=== PATIENT | male | born 1970 | race Caucasian/White ===

== ENCOUNTER 2017-02-26 14:34 | Emergency (ER) | payer SELFPAY ==
[~2017-02-26] VITALS: Ht 180.3 cm; Wt 78.0 kg
[2017-02-26 14:35] VITALS: BP 132/62; PULSE 71; RESP 14; TEMP 98.6; O2SAT 98
--- NOTE | 2017-02-26 15:27 | PD ---
HPI Chief Complaint: Laceration/Skin Injury Time Seen by Provider: 15:07 Travel History International Travel<30 days: No Contact w/Intl Traveler<30days: No Traveled to known affect area: No History of Present Illness HPI 26-year-old male presents emergency Department with complaint of a laceration to the ventral aspect of his right hand from a wench that was unwinding and hit him in the hand. Denies paresthesias, loss of sensation or decreased range of motion or decreased strength to the affected hand. Has not taken any medication to alleviate his symptoms. Has applied pressure and a bandage to control bleeding. Is not up-to-date on tetanus vaccination. Rates pain 3/10. Describes it as a throbbing sensation. No known relieving factors. Aggravated by movement. Has no other medical complaints. No known allergies. No other modifying factors or associated signs and symptoms. PFSH Past Medical History Medical History: Denies Significant Hx Diminished Hearing: No Tetanus Vaccination: Unknown Influenza Vaccination: No Past Surgical History Surgical History: No Previous Surgery Social History Alcohol Use: No Tobacco Use: No Substance Use: No Allergies-Medications (Allergen,Severity, Reaction): Coded Allergies: No Known Allergies (Verified Allergy, Unknown, 02/26/17) Reported Meds & Prescriptions Reported Meds & Active Scripts Active Ibuprofen 800 Mg Tab 800 Mg PO Q6HR PRN Bactrim DS (Sulfamethoxazole-Trimethoprim) 800-160 Mg Tab 1 Tab PO BID 7 Days Review of Systems Except as stated in HPI: all other systems reviewed are Neg Physical Exam Narrative GENERAL: Well-nourished, well-developed male patient, in no acute distress SKIN: Warm and dry. Approximately 2 cm L-shaped laceration to the ventral aspect of the right hand in between the first and second digits; bleeding controlled; area with edema and without ecchymosis or erythema. HEAD: Atraumatic. Normocephalic. EYES: Pupils equal and round. No scleral icterus. No injection or drainage. ENT: Mucosa pink and moist. Airway patent. NECK: Trachea midline. CARDIOVASCULAR: Regular rate. RESPIRATORY: No accessory muscle use. GASTROINTESTINAL: Flat. MUSCULOSKELETAL: No obvious deformities. No clubbing. No cyanosis. No edema. NEUROLOGICAL: Awake and alert. Oriented 3. No obvious cranial nerve deficits. Motor grossly within normal limits. Normal speech. PSYCHIATRIC: Appropriate mood and affect; insight and judgment normal. Exam Hand 1 - Laceration (2cm ) Data Data Last Documented VS Vital Signs Date Time Temp Pulse Resp B/P (MAP) Pulse Ox O2 Delivery O2 Flow Rate FiO2 02/26/17 17:00 02/26/17 14:53 16 02/26/17 14:35 98.6 71 98 Orders Orders Hand, Complete ([id number]) (02/26/17 15:19) Tetanus/Diphtheria Tox Adult (Tetanus/Di (02/26/17 15:30) Lidocaine 1% Inj (50 Ml) (Xylocaine 1% I (02/26/17 15:30) Ed Discharge Order (02/26/17 16:48) MDM Medical Decision Making Medical Screen Exam Complete: Yes Emergency Medical Condition: Yes Medical Record Reviewed: Yes Differential Diagnosis Laceration, contusion, abrasion, hand fracture Narrative Course 36-year-old male with a laceration of the right hand. Tetanus updated in the ER. See my procedure note for laceration repair. Recommend ibuprofen prescribed for home. Instructed patient to return to the emergency department or follow-up with primary care provider in 7-10 days for suture removal. Instructed patient to follow up with primary care provider. Patient verbalizes understanding and agreement with treatment plan. Patient is medically cleared and stable for discharge. Discussed reasons to return to the emergency department. Patient agrees with treatment plan. The patients vital signs are stable and the patient is stable for outpatient follow-up and treatment. Patient discharged home, stable and in no acute distress. Diagnosis Primary Impression: Laceration of right hand Qualified Codes: S61.411A - Laceration without foreign body of right hand, initial encounter Referrals: Hand Surgeon Primary Care Physician Patient Instructions: Care For Your Stitches (ED), General Instructions, Laceration (ED) Departure Forms: Tests/Procedures, Work Release Enter return to work date: Feb 28, 2017 Additional Instructions: Keep area clean and dry Limit right hand activity to decrease risk of sutures coming undone Ibuprofen or Tylenol as directed and as needed for pain and inflammation Ice pack to area as needed to decrease pain Return to the emergency department or follow-up with primary care provider in 7- 10 days for suture removal Follow up with primary care provider within 2-4 days Return to the emergency department immediately with worsening of symptoms, particularly if reddened streaks up or down the affected extremity from the suture site, fever, numbness/tingling in the affected extremity, loss of sensation in the affected extremity, severe swelling of the affected Med/Other Pt SpecificInfo: Prescription(s) given Scripts Ibuprofen (Ibuprofen) 800 Mg Tab 800 MG PO Q6HR Y for PAIN, #30 TAB 0 Refills Prov: Deanna Rueda 02/26/17 Sulfamethoxazole-Trimethoprim (Bactrim DS) 800-160 Mg Tab 1 TAB PO BID for Infection for 7 Days, #14 TAB 0 Refills Prov: Deanna Rueda 02/26/17 Disposition: 01 DISCHARGE HOME Condition: Stable Deanna Rueda Feb 26, 2017 15:27
[2017-02-26] MEDS ORDERED: IBUP1TAB7 PO (15:29)
[2017-02-26] MEDS ORDERED: BACT800T5 PO (15:29)
[2017-02-26] MEDS ORDERED: LIDOCAINE HCL 1% 50 ML VIAL INFIL ONE (15:30)
[2017-02-26] MEDS ORDERED: TETANUS/DIPHTHERIA TOXOID ADULT 0.5 ML VIAL IM ONE (15:30)
--- NOTE | 2017-02-26 16:26 | RADRPT ---
EXAM DATE/TIME: 02/26/2017 15:41 [facility] COMPARISON: No previous studies available for comparison. INDICATIONS : Right hand pain, lacerated by wench tool. MEDICAL HISTORY : None. SURGICAL HISTORY : None. ENCOUNTER: Initial ACUITY: 1 day PAIN SCORE: 3/10 LOCATION: Right Between first and second digit. FINDINGS: Three view examination of the right hand demonstrates no radiopaque foreign bodies, dislocation, or f racture. The carpal bones appear intact. The interphalangeal and metacarpophalangeal joints are in tact. Bony mineralization is normal. CONCLUSION: 1. No radiopaque foreign body, acute fracture or dislocation. Satinder Garza MD on February 26, 2017 at 16:23 Board Certified Radiologist. This report was verified electronically.
== END 2017-02-26 17:01 | disposition home or self-care (01) ==
LOC: NEPD 14:34
DX: S61.411A Laceration without foreign body of right hand, initial encounter (principal); W22.8XXA Striking against or struck by other objects, initial encounter; Z23 Encounter for immunization
CPT/HCPCS: 12001; 73130; 90471; 90714

== ENCOUNTER 2017-03-08 17:34 | Emergency (ER) | payer SELFPAY ==
[~2017-03-08 17:34] MED LIST: BACT800T5 PO; IBUP1TAB7 PO
[2017-03-08 17:35] VITALS: BP 137/80; PULSE 76; RESP 15; TEMP 98.2; O2SAT 99
--- NOTE | 2017-03-08 17:43 | PD ---
HPI Chief Complaint: Wound/Suture/Staple Re-Check Time Seen by Provider: 17:41 Travel History International Travel<30 days: No Contact w/Intl Traveler<30days: No Traveled to known affect area: No History of Present Illness HPI Patient is a 46 year old male presenting to the ED for removal of stitches to his left hand. He states they were placed over a week ago. He denies any pain, redness, drainage, foul odor. He has no other complaints at this time. [facility] Past Medical History Medical History: Denies Significant Hx Diminished Hearing: No Social History Alcohol Use: No Tobacco Use: No Substance Use: No Allergies-Medications (Allergen,Severity, Reaction): Coded Allergies: No Known Allergies (Verified Allergy, Unknown, 02/26/17) Reported Meds & Prescriptions Reported Meds & Active Scripts Active Ibuprofen 800 Mg Tab 800 Mg PO Q6HR PRN Bactrim DS (Sulfamethoxazole-Trimethoprim) 800-160 Mg Tab 1 Tab PO BID 7 Days Review of Systems Except as stated in HPI: all other systems reviewed are Neg Skin: Positive Other (stitches) Physical Exam Narrative GENERAL: Well developed, well nourished alert male. In no acute distress. SKIN: Warm and dry. repaired laceration to left hand on the dorsal aspect in between the first and second fingers. No erythema, drainage or odor noted. HEAD: Normocephalic. EYES: No scleral icterus. No injection or drainage. CARDIOVASCULAR: Regular rate RESPIRATORY: No accessory muscle use. MUSCULOSKELETAL: No cyanosis, or edema. Data Data Last Documented VS Vital Signs Date Time Temp Pulse Resp B/P (MAP) Pulse Ox O2 Delivery O2 Flow Rate FiO2 03/08/17 18:03 03/08/17 17:35 98.2 76 15 99 Orders Orders Ed Discharge Order (03/08/17 17:43) MDM Medical Decision Making Medical Screen Exam Complete: Yes Emergency Medical Condition: Yes Interpretation(s) Vital Signs Date Time Temp Pulse Resp B/P (MAP) Pulse Ox O2 Delivery O2 Flow Rate FiO2 03/08/17 18:03 03/08/17 17:35 98.2 76 15 137/80 (99) 99 Differential Diagnosis cellulitis vs normal healing vs suture removal vs other Narrative Course Pt presented for removal of sutures. VSS, no s/s of infection. Stitches were removed without difficulty. Pt encouraged to follow up with PCP or return to ED for any new or worsening symptoms. He verbalized understanding. Pt is stable for discharge. Diagnosis Primary Impression: Encounter for removal of sutures Referrals: Primary Care Physician Patient Instructions: Acute Wound Care (GEN), General Instructions Additional Instructions: FOLLOW UP WITH PRIMARY DOCTOR APPLY TOPICAL ANTIBIOTIC OINTMENT RETURN TO THE EMERGENCY DEPARTMENT FOR ANY NEW OR WORSENING SYMPTOMS Med/Other Pt SpecificInfo: No Change to Meds Disposition: 01 DISCHARGE HOME Condition: Stable Treasure Smiley Mar 08, 2017 17:43
== END 2017-03-08 18:07 | disposition home or self-care (01) ==
LOC: NED 17:34
DX: Z48.02 Encounter for removal of sutures (principal)
CPT/HCPCS: 99281

== ENCOUNTER 2018-01-04 20:47 | Inpatient (IN) ==
[2018-01-04] MEDS ORDERED: Acetaminophen 325 MG Tablet PO ONE (22:23)
[2018-01-04] MEDS ORDERED: Sod Chloride 0.9% Inj 1,000 ML IV.SIG SCH (22:30)
--- NOTE | 2018-01-04 22:50 | XR ---
EXAM DATE: 01/04/2018 10:23 PM EDT AGE/SEX: 47 years / Male INDICATIONS: Right upper arm pain for 2 days with no known injury CLINICAL DATA: This is the patient's initial encounter. Patient reports that signs and symptoms have been present for 2 days and indicates a pain score of 5/10. MEDICAL/SURGICAL HISTORY: None. None. COMPARISON: No prior exams available for comparison. FINDINGS: Bony structures are intact and in normal alignment. Osseous density is normal. Soft tissues are unre markable. No radiopaque foreign bodies seen. CONCLUSION: Negative right humerus series Electronically signed by: Britton Barrett MD 01/04/2018 10:49 PM EDT
[2018-01-04 23:22] LABS: Hematocrit 50.6 % (39.0-51.0); Hemoglobin 16.8 gm/dL (13.0-17.0); Mean Corpuscular HGB Conc 33.3 % (32.0-36.0); Mean Corpuscular Hemoglobin 30.5 pg (27.0-34.0); Mean Corpuscular Volume 91.8 fL (80.0-100.0); Mean Platelet Volume 8.5 fL (7.0-11.0); Platelet Count 184 th/mm3 (150-450); Red Blood Count 5.51 mil/mm3 (4.50-5.90); Red Cell Distribution Width 13.9 % (11.6-17.2); White Blood Count 20.7 th/mm3 (4.0-11.0)
--- NOTE | 2018-01-04 23:27 | ED ---
HPI General Chief complaint: Skin/Abscess/Foreign Body Stated complaint: Skin Time Seen by Provider: 01/04/18 22:03 Source: patient Mode of arrival: ambulatory Limitations: no limitations History of Present Illness HPI narrative: Patient is a previously healthy 47-year-old male who presents with complaint of wound to his right bicep region. He states that he recently had ant bites there and scratch them constantly. Yesterday he started to notice an area of erythema and pain. This has progressed. He reports a fever and chills. He denies any recent invasive procedures or IV drug use. No chest pain nor dyspnea. No abdominal pain. MD complaint: Reports lesion Onset (ago): unknown Location: Reports RUE Severity: moderate Quality: Reports aching and sharp Pain Consistency: constant Relieving factors: none Exacerbating factors: palpation Context: Reports witnessed insect bite Associated symptoms: Reports denies other symptoms Treatments prior to arrival: Reports none Related Data Home Medications Medication Instructions Recorded Confirmed No Known Home Medications 01/04/18 01/04/18 Allergies Allergy/AdvReac Type Severity Reaction Status Date / Time No Known Allergies Allergy Verified 01/04/18 21:22 Review of Systems ROS: all other systems reviewed are negative [facility] Medical History Medical History Patient denies medical problems (Acute) Surgical History Surgical History H/O hand surgery (Acute) Family History Family History Other Diabetes mellitus Social History Social History Substance History: No History of Abuse Second Hand Smoke Exposure: Yes Smoking Status: Current every day smoker Tobacco Type: Cigarettes How Often Do You Have a Drink Containing Alcohol: Never Recent Travel in [facility] within the Last 8 Weeks: No Recent Out of Country Travel within the Last 8 Weeks: No Immunization History Tetanus Immunization: <5 Years Exam Narrative Exam Narrative: GENERAL: Well-appearing male in no acute distress SKIN: Focused skin assessment warm/dry. Circular area of erythema and warmth to the right bicep region. No induration. HEAD: Atraumatic. Normocephalic. EYES: Pupils equal and round. No scleral icterus. No injection or drainage. ENT: No nasal bleeding or discharge. Mucous membranes pink and moist. NECK: Trachea midline. No JVD. CARDIOVASCULAR: Regular rate and rhythm. No murmur appreciated. Intact and equal peripheral pulses. RESPIRATORY: No accessory muscle use. No crackles. GASTROINTESTINAL: Abdomen soft, non-tender, nondistended. Hepatic and splenic margins not palpable. MUSCULOSKELETAL: No obvious deformities. No clubbing. No cyanosis. No edema. NEUROLOGICAL: Awake and alert. No obvious cranial nerve deficits. Motor grossly within normal limits. Normal speech. PSYCHIATRIC: Appropriate mood and affect; insight and judgment normal. Procedures Chest Tube Chest Tube 1: Chest Tube Location: Mid-Axillary Chest Chest Tube Procedure: Yes betadine prep and sterile drapes applied Tube Sutured to Skin: Yes Sterile Dressing Applied: Yes Anesthesia: 1% Lidocaine Volume anesthetic (mL): 3 Incision made with: #11 blade Sant[place] of [place]: Yes Tube Drainage: none Post Procedure CXR?: Yes Progress: Patient had pigtail catheter placement axillary line, sutured in place 3-0 silk suture. Patient tolerated the procedure well. Chest x-ray confirms, residual apical pneumothorax which is small. Patient Tolerated Procedure: Yes Post Procedure: sutured to skin and sterile dressing applied Course Initial Documented Vital Signs Temperature 101 F H 01/04/18 21:15 Pulse Rate 101 H 01/04/18 21:15 Respiratory Rate 24 01/04/18 21:15 Blood Pressure 116/72 01/04/18 21:15 Pulse Oximetry 98 01/04/18 21:15 Last Documented Vital Signs Temperature 97.2 F L 01/05/18 12:00 Pulse Rate 70 01/05/18 12:00 Respiratory Rate 16 01/05/18 12:00 Blood Pressure 111/66 01/05/18 12:00 Pulse Oximetry 87 L 01/05/18 12:00 Medical Decision Making [facility] Narrative Medical decision making narrative: Patient is a 47-year-old male who presents with complaint of pain, erythema, warmth to the right bicep region that he started to notice yesterday. He is febrile on arrival with slight tachycardia that is appropriately elevated for his temperature, but otherwise appears well. X-ray unremarkable. Labs reveal leukocytosis. He has been given pain medicine, Tylenol, fluids and antibiotics. BMP, UA, CXR pending. Plan for admission. Patient CARE assume by me Dr. Greenberg from Dr. Garcia at 2300, 47-year-old male initially presented for cellulitis and not feeling well the right upper extremity, chest x-ray was ordered for routine sepsis workup showed tension pneumothorax. On my initial examination of the patient he stated that his presentation was actually due to shortness of breath. I discussed with him risk benefits comp occasions alternatives of chest tube and highly recommended that one be placed. He is already been receiving antibiotics. The pigtail catheter was placed and showed significant reduction in the size of his pneumothorax, patient was discussed with Dr. Carcamo for admission. Medical Screen Exam Complete: Yes Emergency Medical Condition: Yes Differential Diagnosis Differential Diagnosis: Differential diagnosis includes but is not limited to cellulitis, sepsis, contact dermatitis. Medical Records Medical records reviewed: Yes I reviewed the patient's medical records. Lab Data Result diagrams: 01/04/18 22:58 01/04/18 22:58 Lab Results 01/04/18 01/04/18 01/04/18 Range/Units 22:58 22:58 23:42 WBC 20.7 H (4.0-11.0) th/mm3 RBC 5.51 (4.50-5.90) mil/mm3 Hgb 16.8 (13.0-17.0) gm/dL Hct 50.6 (39.0-51.0) % MCV 91.8 (80.0-100.0) fL MCH 30.5 (27.0-34.0) pg MCHC 33.3 (32.0-36.0) % RDW 13.9 (11.6-17.2) % Plt Count 184 (150-450) th/mm3 MPV 8.5 (7.0-11.0) fL Prelim Diff (Auto) Manual diff required WBC Differential Manual diff final Seg Neuts % (Manual) 87 H (16-70) % Band Neuts % (Manual) 5 (0-6) % Lymphocytes % (Manual) 3 L (9-44) % Monocytes % (Manual) 5 (0-8) % Abs Neuts (Manual) 19.0 H (1.8-7.7) th/mm3 Differential Comment . Platelet Estimate Normal (Normal) Platelet Morphology Normal (Normal) RBC Morphology Normal (Normal) Sodium 141 (136-145) meq/L Potassium 3.9 (3.5-5.1) meq/L Chloride 105 (98-107) meq/L Carbon Dioxide 30.3 (21.0-32.0) meq/L Anion Gap 6 (5-15) meq/L BUN 22 H (7-18) mg/dL Creatinine 1.51 H (0.60-1.30) mg/dL Estimated GFR 50 L (>89) mL/min Random Glucose 102 (74-106) mg/dL Lactic Acid 1.8 (0.4-2.0) mmol/L Calcium 9.2 (8.5-10.1) mg/dL Urine Color (Yellw/Straw) Urine Clarity (Clear) Urine pH (5.0-8.5) Ur Specific [place] (1.002-1.035) Urine Protein (Neg-Trace) mg/dL Urine Glucose (UA) (Negative) mg/dL Urine Ketones (Negative) mg/dL Urine Occult Blood (Negative) Urine Nitrate (Negative) Urine Bilirubin (Negative) Urine Urobilinogen (Less than 2) mg/dL Ur Leukocyte Esterase (Negative) Urine RBC (0-3) /hpf Urine WBC (0-5) /hpf Hyaline Casts (0-3) /lpf Urine Mucus (Occasional) /lpf Micro UA Comment Ur Microscopic Review Urine Culture Comments 01/04/18 Range/Units 23:52 WBC (4.0-11.0) th/mm3 RBC (4.50-5.90) mil/mm3 Hgb (13.0-17.0) gm/dL Hct (39.0-51.0) % MCV (80.0-100.0) fL MCH (27.0-34.0) pg MCHC (32.0-36.0) % RDW (11.6-17.2) % Plt Count (150-450) th/mm3 MPV (7.0-11.0) fL Prelim Diff (Auto) WBC Differential Seg Neuts % (Manual) (16-70) % Band Neuts % (Manual) (0-6) % Lymphocytes % (Manual) (9-44) % Monocytes % (Manual) (0-8) % Abs Neuts (Manual) (1.8-7.7) th/mm3 Differential Comment Platelet Estimate (Normal) Platelet Morphology (Normal) RBC Morphology (Normal) Sodium (136-145) meq/L Potassium (3.5-5.1) meq/L Chloride (98-107) meq/L Carbon Dioxide (21.0-32.0) meq/L Anion Gap (5-15) meq/L BUN (7-18) mg/dL Creatinine (0.60-1.30) mg/dL Estimated GFR (>89) mL/min Random Glucose (74-106) mg/dL Lactic Acid (0.4-2.0) mmol/L Calcium (8.5-10.1) mg/dL Urine Color Yellow (Yellw/Straw) Urine Clarity Clear (Clear) Urine pH 6.0 (5.0-8.5) Ur Specific [place] 1.025 (1.002-1.035) Urine Protein Negative (Neg-Trace) mg/dL Urine Glucose (UA) Negative (Negative) mg/dL Urine Ketones Negative (Negative) mg/dL Urine Occult Blood Negative (Negative) Urine Nitrate Negative (Negative) Urine Bilirubin Negative (Negative) Urine Urobilinogen Less than 2 (Less than 2) mg/dL Ur Leukocyte Esterase Negative (Negative) Urine RBC 1 (0-3) /hpf Urine WBC 1 (0-5) /hpf Hyaline Casts 3 (0-3) /lpf Urine Mucus Few H (Occasional) /lpf Micro UA Comment Culture not ind Ur Microscopic Review Not Reportable Urine Culture Comments Culture not ind Imaging Data Attestation: I personally reviewed and interpreted this imaging study as follows : My impression: Unremarkable. Radiologist's impression: Humerus X-Ray 01/04/18 22:23 CONCLUSION: Negative right humerus series Chest X-Ray 01/04/18 23:28 CONCLUSION: Large right pneumothorax with some findings suggesting a mild degree of tension. Immediate decompression and chest tube placement is suggested. These findings were telephoned to the emergency room at the time of this dictation. Chest CT 01/05/18 00:00 CONCLUSION: 1. Small bore right-sided chest tube with pigtail catheter located along the lateral aspect of the right upper lobe. 2. Small to moderate residual pneumothorax. 3. Right lung infiltrate. Upper Extremity Ultrasound 01/05/18 00:00 CONCLUSION: 1. Findings consistent with cellulitis and small subcutaneous 15 mm abscess communicating with the draining cutaneous fistula. Venous Doppler Study 01/05/18 00:00 CONCLUSION: 1. The study is negative for upper extremity deep venous thrombosis. Chest X-Ray 01/05/18 00:20 CONCLUSION: 1. Interval chest tube placement with significant decrease in size of the pneumothorax with only a small residual right apical pneumothorax remaining. 2. Mild degree of consolidation in the right upper lobe which could represent reexpansion edema. Suggest attention to this at follow-up imaging. Discharge Plan Discharge Disposition Patient Disposition: 30 Still Patient Discharge Details Diagnosis: Pneumothorax, Cellulitis, Sepsis Physicians Team ED Provider: Jonathan Greenberg Primary Care Provider: Primary Care Stephenie Tomas Attending Provider: Mike Cagle Other Providers: Terry Johnson Status ED Status: Left Department Discharge Information Discharge Date/Time: 01/05/18 03:54
[2018-01-04] MEDS ORDERED: Vancomycin Inj 1,200 MG in Sodium Chlor 0.9% Inj 250 ML IV.SIG STA (23:28)
[2018-01-04] MEDS ORDERED: Piperacil/Tazo 4.5 GM Premix 4.5 GM/100 ML BAG IV.SIG STA (23:28)
[2018-01-04 23:43] LABS: Calcium 9.2 mg/dL (8.5-10.1); Carbon Dioxide 30.3 meq/L (21.0-32.0); Potassium 3.9 meq/L (3.5-5.1)
[2018-01-05 00:07] LABS: Lymphocytes 3 % (9-44); Monocytes 5 % (0-8)
--- NOTE | 2018-01-05 00:07 | XR ---
EXAM DATE: 01/04/2018 11:28 PM EDT AGE/SEX: 47 years / Male INDICATIONS: Fever. CLINICAL DATA: This is the patient's initial encounter. Patient reports that signs and symptoms have been present for 1 day and indicates a pain score of 0/10. MEDICAL/SURGICAL HISTORY: None. None. COMPARISON: No prior exams available for comparison. FINDINGS: Portable upright AP view of the chest demonstrates a normal size cardiac silhouette. There is a very large right pneumothorax with severe collapse of the right lung. There may be slight leftward shift o f the mediastinum and slight flattening of the right hemidiaphragm suggesting some degree of tension. On the left, no effusion or airspace consolidation is identified. The bones and soft tissues demonst rate no acute finding. No rib fracture is visualized. CONCLUSION: Large right pneumothorax with some findings suggesting a mild degree of tension. Immediate decompress ion and chest tube placement is suggested. These findings were telephoned to the emergency room at th e time of this dictation. Electronically signed by: Britton German MD 01/05/2018 12:05 AM EDT
[2018-01-05 00:08] LABS: Platelet Estimate Normal (Normal); Platelet Morphology Normal (Normal); RBC Morphology Normal (Normal)
[2018-01-05 00:16] LABS: Bilirubin,Urine Negative (Negative); Clarity,Urine Clear (Clear); Color,Urine Yellow (Yellw/Straw); Glucose,Urine (UA) Negative (Negative); Hyaline Casts,Urine 3 /lpf (0-3); Leukocyte Esterase,Urine Negative (Negative); Mucus,Urine Few /lpf (Occasional); Nitrite,Urine Negative (Negative); Specific Gravity,Urine 1.025 (1.002-1.035)
[2018-01-05] MEDS ORDERED: Morphine Inj 4 MG/ML Vial ONE (00:18)
[2018-01-05] MEDS ORDERED: Morphine Inj 4 MG, Morphine Inj 2 MG IV.PUSH ONE ×2 (00:21)
--- NOTE | 2018-01-05 00:42 | XR ---
EXAM DATE: 01/05/2018 12:20 AM EDT AGE/SEX: 47 years / Male INDICATIONS: Post right chest tube placement CLINICAL DATA: This is the patient's initial encounter. Patient reports that signs and symptoms have been present for 1 day and indicates a pain score of 5/10. MEDICAL/SURGICAL HISTORY: None. None. COMPARISON: [facility] – [place], CHEST 1V SINGLE AP, 01/04/2018. . FINDINGS: Portable upright expiratory view of the chest demonstrates a normal-sized cardiac silhouette. Smallbo re pigtail right chest tube/catheter has been placed with the medial aspect abutting the mediastinum. It is located in the mid to inferior aspect of the hemithorax. The right pneumothorax has significan tly decreased in size. Small residual right apical pneumothorax is present. There is mild airspace co nsolidation in the right upper lobe and likely atelectasis in the right lower lung zone. Left lung is clear. CONCLUSION: 1. Interval chest tube placement with significant decrease in size of the pneumothorax with only a s mall residual right apical pneumothorax remaining. 2. Mild degree of consolidation in the right upper lobe which could represent reexpansion edema. Sug gest attention to this at follow-up imaging. Electronically signed by: Britton German MD 01/05/2018 12:41 AM EDT
[2018-01-05] MEDS ORDERED: Morphine Inj 4 MG/ML Vial IV.PUSH ONE (02:01)
[2018-01-05] MEDS ORDERED: Bisacodyl 10 MG Supp RECTAL PRN (02:16)
[2018-01-05] MEDS ORDERED: Vancomycin Consult Pharmacy OTHER PRN (02:19)
--- NOTE | 2018-01-05 03:25 | P.HP ---
History of Present Illness Service: [facility] Primary Care Physician: No Primary Care Physician History of Present Illness: 47-year-old male with no significant past medical history presents to the emergency department for evaluation of a red, swollen, painful right arm. He reports that the wound initially started as an ant bite that he picked at and it became infected. He denies any drainage of the area. He also reports a one- week history of shortness of breath. Chest x-ray showed incidental tension pneumothorax. Positive fever/chills. No chest pain. No abdominal pain. No nausea/vomiting/diarrhea. Inpatient Certification: I certify that the inpatient services were ordered in accordance with Medicare regulations governing the order. This includes certification that hospital inpatient services are reasonable and necessary and in the case of services not specified as inpatient-only under 42 CFR 419.22(n), that they are appropriately provided as inpatient services in accordance to with the 2-midnight benchmark under 43 CFR 412.3(e) Estimated Total Length of Stay (Days): 2 Plans for Post Hospital Care: Home Review of Systems All other systems reviewed negative except as stated in HPI PMFSH - History History Provided By: Patient - Medical History Medical History: Medical History (Last Reviewed 01/05/18 @ 03:19 by Nasreen Carcamo MD) Patient denies medical problems - Surgical History Surgical History: Surgical History (Last Reviewed 01/05/18 @ 03:19 by Nasreen Carcamo MD) H/O hand surgery - Family History Family History: Family History (Last Updated 01/05/18 @ 03:19 by Nasreen Carcamo MD) Other Diabetes mellitus - Tobacco History Second Hand Smoke Exposure: Yes Tobacco Use In Past 30 Days: Yes Smoking Status: Current every day smoker Tobacco Type: Cigarettes - Alcohol History How Often Do You Have a Drink Containing Alcohol: Never - Substance Use History Substance History: No History of Abuse - Travel History Recent Travel in the [place] Within the Last 8 Weeks: No Recent Travel Out of the Country Within the Last 8 Weeks: No - Immunization History Tetanus Immunization: <5 Years Medications and Allergies Active Medications: Active Medications Bisacodyl (Dulcolax Supp) 10 mg RECTAL DAILY PRN PRN Reason: SEVERE CONSITIPATION Sodium Chloride (Ns Inj) 1,000 mls @ 0 mls/hr IV.SIG BOLUS IRWIN Last Infusion: 01/05/18 00:55 Dose: Infused Piperacillin/Tazobactam/Dextrose (Zosyn 3.375 Gm Premix) 50 mls @ 100 mls/hr IV.SIG Q6H [facility] Pharmacy Profile Note (Vancomycin Consult Pharmacy) 1 each OTHER UNSCH PRN PRN Reason: Pharmacy to dose Allergies Allergy/AdvReac Type Severity Reaction Status Date / Time No Known Allergies Allergy Verified 01/04/18 21:22 Home Medications Medication Instructions Recorded Confirmed Type No Known Home Medications 01/04/18 01/04/18 History Exam Vital signs: Vital Signs 01/04/18 21:15 01/04/18 21:21 01/05/18 01:39 Temperature 101 F H Pulse Rate 101 H 90 85 Respiratory Rate 24 18 18 Blood Pressure 116/72 129/72 128/98 H Pulse Oximetry 98 98 94 L 01/05/18 02:34 Temperature Pulse Rate 79 Respiratory Rate 18 Blood Pressure 117/62 Pulse Oximetry Intake & Output 01/04/18 01/04/18 01/05/18 06:59 18:59 06:59 Intake Total 1362 / 1362 Balance 1362 / 1362 Weight 74.843 kg Intake: IV 1362 / 1362 Zosyn 4.5 GM Premix 4.5 gm In 100 / 100 100 ml @ 200 mls/hr IV.SIG STAT STA Rx#:[id number] NS Inj 1,000 ML @ Wide Open IV. 1000 / 1000 SIG BOLUS IRWIN Rx#:[id number] Vancomycin Inj 1,200 MG In NS 262 / 262 Inj 250 ML @ 250 mls/hr IV.SIG STAT STA Rx#:[id number] Narrative: Gen.: No acute distress Head: Normocephalic. Atraumatic. EENT: Pupils equal round and reactive to light. Nose without drainage. Airway intact. Throat without injection. Cardiovascular: Regular rate and rhythm. No murmurs, rubs or gallops. Respiratory: Lungs clear to auscultation bilaterally. No wheezes or rhonchi. Abdomen: Soft, nontender, nondistended. No peritoneal signs. Musculoskeletal: No gross deformities. No edema. Skin: Swollen, erythematous right bicep without drainage. Warm to the touch. Neuro: Sensory and motor grossly intact. Cranial nerves II through XII grossly intact. Results - Labs CBC & Chem 7: 01/04/18 22:58 01/04/18 22:58 Labs: Laboratory Results - last 24 hr 01/04/18 01/04/18 01/04/18 22:58 22:58 23:42 WBC 20.7 H RBC 5.51 Hgb 16.8 Hct 50.6 MCV 91.8 MCH 30.5 MCHC 33.3 RDW 13.9 Plt Count 184 MPV 8.5 Prelim Diff (Auto) Manual diff required WBC Differential Manual diff final Seg Neuts % (Manual) 87 H Band Neuts % (Manual) 5 Lymphocytes % (Manual) 3 L Monocytes % (Manual) 5 Abs Neuts (Manual) 19.0 H Differential Comment . Platelet Estimate Normal Platelet Morphology Normal RBC Morphology Normal Sodium 141 Potassium 3.9 Chloride 105 Carbon Dioxide 30.3 Anion Gap 6 BUN 22 H Creatinine 1.51 H Estimated GFR 50 L Random Glucose 102 Lactic Acid 1.8 Calcium 9.2 Urine Color Urine Clarity Urine pH Ur Specific [place] Urine Protein Urine Glucose (UA) Urine Ketones Urine Occult Blood Urine Nitrate Urine Bilirubin Urine Urobilinogen Ur Leukocyte Esterase Urine RBC Urine WBC Hyaline Casts Urine Mucus Micro UA Comment Ur Microscopic Review Urine Culture Comments 01/04/18 23:52 WBC RBC Hgb Hct MCV MCH MCHC RDW Plt Count MPV Prelim Diff (Auto) WBC Differential Seg Neuts % (Manual) Band Neuts % (Manual) Lymphocytes % (Manual) Monocytes % (Manual) Abs Neuts (Manual) Differential Comment Platelet Estimate Platelet Morphology RBC Morphology Sodium Potassium Chloride Carbon Dioxide Anion Gap BUN Creatinine Estimated GFR Random Glucose Lactic Acid Calcium Urine Color Yellow Urine Clarity Clear Urine pH 6.0 Ur Specific [place] 1.025 Urine Protein Negative Urine Glucose (UA) Negative Urine Ketones Negative Urine Occult Blood Negative Urine Nitrate Negative Urine Bilirubin Negative Urine Urobilinogen Less than 2 Ur Leukocyte Esterase Negative Urine RBC 1 Urine WBC 1 Hyaline Casts 3 Urine Mucus Few H Micro UA Comment Culture not ind Ur Microscopic Review Not Reportable Urine Culture Comments Culture not ind - Imaging Impressions Humerus X-Ray 01/04/18 22:23 CONCLUSION: Negative right humerus series Chest X-Ray 01/04/18 23:28 CONCLUSION: Large right pneumothorax with some findings suggesting a mild degree of tension. Immediate decompression and chest tube placement is suggested. These findings were telephoned to the emergency room at the time of this dictation. Chest X-Ray 01/05/18 00:20 CONCLUSION: 1. Interval chest tube placement with significant decrease in size of the pneumothorax with only a small residual right apical pneumothorax remaining. 2. Mild degree of consolidation in the right upper lobe which could represent reexpansion edema. Suggest attention to this at follow-up imaging. Caprini VTE Risk Assessment Caprini VTE Risk Assessment: No/Low Risk (score <= 1) Caprini Risk Assessment Model: Point Value = 1 Point Value = 2 Point Value = 3 Point Value = 5 Age 41-60 Minor surgery BMI > 25 kg/m2 Swollen legs Varicose veins or History of unexplained or recurrent spontaneous Oral contraceptives or hormone replacement Sepsis (< 1 month) Serious lung disease, including pneumonia (< 1 month) Abnormal pulmonary function Acute myocardial infarction Congestive heart failure (< 1 month) History of inflammatory bowel disease Medical patient at bed rest Age 61-74 Arthroscopic surgery Major open surgery (> 45 min) Laparoscopic surgery (> 45 min) Malignancy Confined to bed (> 72 hours) Immobilizing plaster cast Central venous access Age >= 75 History of VTE Family history of VTE Factor V Leiden Prothrombin [id number] Lupus anticoagulant Anticardiolipin antibodies Elevated serum homocysteine Heparin-induced thrombocytopenia Other congenital or acquired thrombophilia Stroke (< 1 month) Elective arthroplasty Hip, pelvis, or leg fracture Acute spinal cord injury (< 1 month) Prophylaxis Regimen: Total Risk Factor Score Risk Level Prophylaxis Regimen 0-1 Low Early ambulation 2 Moderate Order ONE of the following: *Sequential Compression Device (SCD) *Heparin 5000 units SQ BID 3-4 Higher Order ONE of the following medications: *Heparin 5000 units SQ TID *Enoxaparin/Lovenox 40 mg SQ daily (WT < 150 kg, CrCl > 30 mL/min) *Enoxaparin/Lovenox 30 mg SQ daily (WT < 150 kg, CrCl > 10-29 mL/min) *Enoxaparin/Lovenox 30 mg SQ BID (WT < 150 kg, CrCl > 30 mL/min) AND/OR *Sequential Compression Device (SCD) 5 or more Highest Order ONE of the following medications: *Heparin 5000 units SQ TID (Preferred with Epidurals) *Enoxaparin/Lovenox 40 mg SQ daily (WT < 150 kg, CrCl > 30 mL/min) *Enoxaparin/Lovenox 30 mg SQ daily (WT < 150 kg, CrCl > 10-29 mL/min) *Enoxaparin/Lovenox 30 mg SQ BID (WT < 150 kg, CrCl > 30 mL/min) AND *Sequential Compression Device (SCD) Assessment and Plan - Plan Assessment/plan: 1. Pneumothorax Likely secondary to marijuana inhalation Pigtail in place, lung reexpanded with small apical pneumothorax remaining Dr. Johnson consulted for chest tube management, appreciate recommendations 2. Cellulitis Vancomycin/Zosyn Blood cultures pending For some pending to assess for any drainable fluid collection 3. Acute kidney injury Creatinine 1.51, baseline for comparison IV fluid hydration Monitor renal function FEN Cardiac diet Electrolytes: Monitor and replete as needed NS at 100 cc/hour
[2018-01-05] MEDS: HYDROmorphone PF Inj 2 MG/ML Vial IV.PUSH PRN ×5 (04:07→21:25)
[2018-01-05] MEDS: Sod Chloride 0.9% Inj 1,000 ML IV.CONT SCH ×3 (04:09→21:28)
[2018-01-05] MEDS: Piperacil/Tazo 3.375 GM Premix 50 ML IV.SIG SCH ×3 (07:37→17:47)
--- NOTE | 2018-01-05 08:34 | US ---
EXAM DATE: 01/05/2018 12:00 AM EDT AGE/SEX: 47 years / Male INDICATIONS: Right arm swelling and redness. CLINICAL DATA: This is the patient's initial encounter. Patient reports that signs and symptoms have been present for 1 day and indicates a pain score of 1/10. MEDICAL/SURGICAL HISTORY: . Right arm swelling and redness. Tension pneumothorax. . Right cirilo st tube placement. COMPARISON: No prior exams available for comparison. FINDINGS: The vessels are compressible and augmentation response is documented. No filling defects a re seen. The flow is phasic with respiration. Other: There is soft tissue swelling in the distal arm. CONCLUSION: 1. The study is negative for upper extremity deep venous thrombosis. Electronically signed by: Flaco Grimm MD 01/05/2018 8:32 AM EDT
--- NOTE | 2018-01-05 11:57 | P.PNADD ---
Addendum to Inpatient Note Reason for Addendum: Additional Documentation Additional information: No acute deterioration is noted overnight. Breath sounds heard but diminished on the right lung field, chest tube in place hooked up to suction Left lung field is clear Unlabored breathing Pus is noted to be draining from the right arm. Surgery notified.
--- NOTE | 2018-01-05 12:22 | P.PNVS ---
Subjective Subjective/Hospital Course: Patient seen full consult dictated CT of the chest pending Will follow Jessica Austin Objective Vital Signs / I&O: Vital Signs 01/04/18 21:15 01/04/18 21:21 01/05/18 01:39 Temperature 101 F H Pulse Rate 101 H 90 85 Respiratory Rate 24 18 18 Blood Pressure 116/72 129/72 128/98 H Pulse Oximetry 98 98 94 L 01/05/18 02:34 01/05/18 04:00 01/05/18 07:57 Temperature 97.7 F 97.1 F L Pulse Rate 79 83 68 Respiratory Rate 18 18 16 Blood Pressure 117/62 117/65 101/62 Pulse Oximetry 92 L 85 L 01/05/18 12:00 Temperature 97.2 F L Pulse Rate 70 Respiratory Rate 16 Blood Pressure 111/66 Pulse Oximetry 87 L Intake & Output 01/04/18 01/05/18 01/05/18 18:59 06:59 18:59 Intake Total 1362 / 1362 50 / 50 Output Total 0 / 0 Balance 1362 / 1362 50 / 50 Weight 74.2 kg Intake: IV 1362 / 1362 50 / 50 Zosyn 3.375 GM Premix 50 ML @ 50 / 50 100 mls/hr IV.SIG Q6H IRWIN Rx#: [id number] Zosyn 4.5 GM Premix 4.5 gm In 100 / 100 100 ml @ 200 mls/hr IV.SIG STAT STA Rx#:[id number] NS Inj 1,000 ML @ Wide Open IV. 1000 / 1000 SIG BOLUS IRWIN Rx#:[id number] Vancomycin Inj 1,200 MG In NS 262 / 262 Inj 250 ML @ 250 mls/hr IV.SIG STAT STA Rx#:[id number] Output: Urine 0 / 0 Laboratory Results - last 24 hr 01/04/18 01/04/18 01/04/18 22:58 22:58 23:42 WBC 20.7 H RBC 5.51 Hgb 16.8 Hct 50.6 MCV 91.8 MCH 30.5 MCHC 33.3 RDW 13.9 Plt Count 184 MPV 8.5 Prelim Diff (Auto) Manual diff required WBC Differential Manual diff final Seg Neuts % (Manual) 87 H Band Neuts % (Manual) 5 Lymphocytes % (Manual) 3 L Monocytes % (Manual) 5 Abs Neuts (Manual) 19.0 H Differential Comment . Platelet Estimate Normal Platelet Morphology Normal RBC Morphology Normal Sodium 141 Potassium 3.9 Chloride 105 Carbon Dioxide 30.3 Anion Gap 6 BUN 22 H Creatinine 1.51 H Estimated GFR 50 L Random Glucose 102 Lactic Acid 1.8 Calcium 9.2 Urine Color Urine Clarity Urine pH Ur Specific [place] Urine Protein Urine Glucose (UA) Urine Ketones Urine Occult Blood Urine Nitrate Urine Bilirubin Urine Urobilinogen Ur Leukocyte Esterase Urine RBC Urine WBC Hyaline Casts Urine Mucus Micro UA Comment Ur Microscopic Review Urine Culture Comments 01/04/18 23:52 WBC RBC Hgb Hct MCV MCH MCHC RDW Plt Count MPV Prelim Diff (Auto) WBC Differential Seg Neuts % (Manual) Band Neuts % (Manual) Lymphocytes % (Manual) Monocytes % (Manual) Abs Neuts (Manual) Differential Comment Platelet Estimate Platelet Morphology RBC Morphology Sodium Potassium Chloride Carbon Dioxide Anion Gap BUN Creatinine Estimated GFR Random Glucose Lactic Acid Calcium Urine Color Yellow Urine Clarity Clear Urine pH 6.0 Ur Specific [place] 1.025 Urine Protein Negative Urine Glucose (UA) Negative Urine Ketones Negative Urine Occult Blood Negative Urine Nitrate Negative Urine Bilirubin Negative Urine Urobilinogen Less than 2 Ur Leukocyte Esterase Negative Urine RBC 1 Urine WBC 1 Hyaline Casts 3 Urine Mucus Few H Micro UA Comment Culture not ind Ur Microscopic Review Not Reportable Urine Culture Comments Culture not ind Microbiology 01/04/18 23:42 Aerobic Blood Culture - Preliminary Blood - Peripheral No growth in 1 day Anaerobic Blood Culture - Preliminary No growth in 1 day 01/04/18 23:42 Aerobic Blood Culture - Preliminary Blood - Peripheral No growth in 1 day Anaerobic Blood Culture - Preliminary No growth in 1 day Impressions Humerus X-Ray 01/04/18 22:23 CONCLUSION: Negative right humerus series Chest X-Ray 01/04/18 23:28 CONCLUSION: Large right pneumothorax with some findings suggesting a mild degree of tension. Immediate decompression and chest tube placement is suggested. These findings were telephoned to the emergency room at the time of this dictation. Venous Doppler Study 01/05/18 00:00 CONCLUSION: 1. The study is negative for upper extremity deep venous thrombosis. Chest X-Ray 01/05/18 00:20 CONCLUSION: 1. Interval chest tube placement with significant decrease in size of the pneumothorax with only a small residual right apical pneumothorax remaining. 2. Mild degree of consolidation in the right upper lobe which could represent reexpansion edema. Suggest attention to this at follow-up imaging.
--- NOTE | 2018-01-05 13:01 | US ---
EXAM DATE: 01/05/2018 12:00 AM EDT AGE/SEX: 47 years / Male INDICATIONS: Right arm swelling and redness, evaluate for abscess. CLINICAL DATA: This is the patient's subsequent encounter. Patient reports that signs and symptoms h ave been present for 1 day and indicates a pain score of 0/10. MEDICAL/SURGICAL HISTORY: . Right arm swelling and redness. Tension pneumothorax. . Right cirilo st tube placement. COMPARISON: [facility] [place], [place] VENOUS DOPPLER ARM RIGHT, 01/05/2018. . FINDINGS: Diffusely edematous soft tissues in the region of patient's open draining wound. There is a very subt le complex subcutaneous collection measuring 9 x 5 x 15 mm which extends towards the cutaneous fistul a. No additional focal diameter fluid collections. Visualized portions of the basilic vein are patent . CONCLUSION: 1. Findings consistent with cellulitis and small subcutaneous 15 mm abscess communicating with the d raining cutaneous fistula. Electronically signed by: Satinder Garza MD 01/05/2018 12:59 PM EDT
--- NOTE | 2018-01-05 13:33 | MB ---
cc: Terry Johnson MD DATE: 01/05/2018 CONSULTING PHYSICIAN: Dr. Johnson, vascular surgery. REASON FOR CONSULTATION: Right arm swelling and cellulitis as well as right pneumothorax. HISTORY OF PRESENT ILLNESS: This 47-year-old male presents to the emergency room with a right swollen biceps area. The patient states it was some sort of insect bite. It got worse in the last few days. He also notes that he was short of breath for a few days. Chest x-ray reveals a right simple pneumothorax with complete collapse of the right lung. Hence, the consultations. PAST MEDICAL HISTORY: Some sort of hand surgery. SOCIAL HISTORY: The patient smokes most of his adult life, about a pack to 2 a day. Does not drink. Denies drugs. PHYSICAL EXAMINATION: GENERAL: Reveals a 47-year-old male, appearing older than his actual age. HEENT: Normocephalic. No trauma to the head. Pupils are equal and reactive. Extraocular muscles intact. NECK: Bilateral carotid pulses. No bruits. CHEST: Clear. Diminished breath sounds on the right side. The patient is ready to have the right chest tube placed at that time when I saw him, which was to be done in interventional radiology on the left side. The patient has decreased breath sounds as well. However, this is a moderate degree of COPD contributing to the same. Patient is sort of thin, asthenic, and there are already some stigmata of pulmonary cachexia, loss of musculature of the chest wall. ABDOMEN: Soft. Active bowel sounds. EXTREMITIES: The patient has bilateral proximal and distal pulses. No signs of vascular deficit. On the right side, the patient has cellulitis of the biceps area and I do not see any drainage and there is no fluctuant areas. ASSESSMENT AND PLAN: This is mainly a phlegmon which might, with therapy, tighten down to some area that will finally drain out but right now, there is no surgery to be done there. Antibiotics are indicated. Warm compresses. We will see which way it goes. As far as the chest is concerned, this patient has subcutaneous pneumothorax, which in this age group is due either to pleural blebs, usually apical, located and the result of COPD, or sometimes an occult malignancy that perforates. In a younger patients in the 20s, this is a completely different disease, while in this age group it is degenerative disease. The patient should have a chest tube placed and if leak does not stop by next week, then the patient should have thoracoscopy and bleb resection. In the meantime, I will order a CT of the chest to see if there is any other pathology that might be of concern. Thank you very much for referral. MD FRANSISCO Garcia/brittny/parker , 12:22 PM , 12:31 PM
--- NOTE | 2018-01-05 16:22 | CT ---
EXAM DATE: 01/05/2018 3:41 PM EDT AGE/SEX: 47 years / Male INDICATIONS: Follow-up right pneumothorax. Chest tube in place. CLINICAL DATA: This is the patient's subsequent encounter. Patient reports that signs and symptoms h ave been present for 3 days and indicates a pain score of 5/10. MEDICAL/SURGICAL HISTORY: Sepsis. None. RADIATION DOSE: 9.03 CTDI (mGy) COMPARISON: C, CHEST 1V SINGLE AP, 01/04/2018. . TECHNIQUE: Multiple contiguous axial images were obtained through the chest during bolus infusion of 71 ml Omnipaque 350 (iohexol) nonionic water-soluble contrast as a single exam dose. Images were obtained in suspended respiration using multiple row detector helical technique. Using automated exp osure control and adjustment of the mA and/or kV according to patient size, radiation dose was kept a s low as reasonably achievable to obtain optimal diagnostic quality images. DICOM format image data is available electronically for review and comparison. FINDINGS: Lungs: There is a small bore right-sided chest tube in place with the pigtail catheter located along the lateral aspect of the right upper lobe. There is a small to moderate residual anterior pneumotho rax measuring up to 2.3 cm in greatest AP diameter and 11 cm in transverse diameter. There is alveola r opacity in the right upper lobe, right middle lobe and right lower lobe. This is greatest in the lo wer lobe. The left lung is clear. Mediastinum: There is good visualization of the great vessels of the middle mediastinum. No evidenc e of mediastinal or hilar adenopathy/mass. Pleurae: No evidence of focal thickening or pleural effusion. Axillae: Unremarkable. Bony Structures: Unremarkable. Miscellaneous: The examination was extended to include the upper abdomen, and both adrenal glands ar e normal in size and configuration. CONCLUSION: 1. Small bore right-sided chest tube with pigtail catheter located along the lateral aspect of the r ight upper lobe. 2. Small to moderate residual pneumothorax. 3. Right lung infiltrate. Electronically signed by: Gavino Wesley MD 01/05/2018 4:21 PM EDT
[2018-01-05] MEDS: Vancomycin Inj 1,250 MG in Sodium Chlor 0.9% Inj 250 ML IV.SIG SCH (21:27)
[2018-01-06] MEDS: Sod Chloride 0.9% Inj 1,000 ML IV.CONT SCH ×5 (00:25→20:19)
[2018-01-06] MEDS: HYDROmorphone PF Inj 2 MG/ML Vial IV.PUSH PRN ×5 (01:28→20:15)
[2018-01-06] MEDS: Piperacil/Tazo 3.375 GM Premix 50 ML IV.SIG SCH ×4 (01:28→18:35)
[2018-01-06 06:30] LABS: Baso # (Auto) 0.1 th/mm3 (0.0-0.2); Baso % (Auto) 0.5 % (0.0-2.0); Eos # (Auto) 0.5 th/mm3 (0.0-0.4); Eos % (Auto) 2.5 % (0.0-4.0); Hematocrit 50.4 % (39.0-51.0); Hemoglobin 16.9 gm/dL (13.0-17.0); Lymph # (Auto) 1.1 th/mm3 (1.0-4.8); Lymph % (Auto) 5.1 % (9.0-44.0); Mean Corpuscular HGB Conc 33.5 % (32.0-36.0); Mean Corpuscular Hemoglobin 30.8 pg (27.0-34.0); Mean Corpuscular Volume 91.9 fL (80.0-100.0); Mean Platelet Volume 8.3 fL (7.0-11.0); Mono # (Auto) 0.7 th/mm3 (0.0-0.9); Mono % (Auto) 3.5 % (0.0-8.0); Neut % (Auto) 88.4 % (16.0-70.0); Platelet Count 133 th/mm3 (150-450); Red Blood Count 5.49 mil/mm3 (4.50-5.90); Red Cell Distribution Width 13.6 % (11.6-17.2); White Blood Count 21.5 th/mm3 (4.0-11.0)
[2018-01-06 07:08] LABS: Calcium 8.4 mg/dL (8.5-10.1); Carbon Dioxide 27.7 meq/L (21.0-32.0); Potassium 3.7 meq/L (3.5-5.1)
--- NOTE | 2018-01-06 11:39 | P.PN ---
Subjective Interval history: Nursing denies any deterioration since last night. Patient says his arm is still draining and thinks that it is larger than yesterday. Describes his arm pain at a 2.5 and his chest pain at worst at a level of 8. Physical Exam Vital signs: Vital Signs 01/05/18 12:00 01/05/18 17:11 01/05/18 18:11 Temperature 97.2 F L Pulse Rate 70 Respiratory Rate 16 18 18 Blood Pressure 111/66 Pulse Oximetry 87 L 01/05/18 20:00 01/06/18 00:00 01/06/18 08:00 Temperature 98 F 98.1 F 98.1 F Pulse Rate 73 70 72 Respiratory Rate 17 17 18 Blood Pressure 111/69 118/62 105/62 Pulse Oximetry 92 L 92 L 90 L Intake & Output 01/05/18 01/06/18 01/06/18 18:59 06:59 18:59 Intake Total 2050 / 2050 2842.5 / 2842.5 Output Total 850 / 850 1460 / 1460 Balance 1200 / 1200 1382.5 / 1382.5 Weight 74.2 kg Intake: IV 1150 / 1150 2362.5 / 2362.5 NS Inj 1,000 ML @ 100 mls/hr IV 1000 / 1000 2000 / 2000 .CONT .Q10H IR[facility] Rx#:[id number] Zosyn 3.375 GM Premix 50 ML @ 150 / 150 100 / 100 100 mls/hr IV.SIG Q6H [facility] Rx#: [id number] Vancomycin Inj 1,250 MG In NS 262.5 / 262.5 Inj 250 ML @ 250 mls/hr IV.SIG Q18H [facility] Rx#:[id number] Oral 900 / 900 480 / 480 Output: Urine 850 / 850 1400 / 1400 Chest Tube Drainage 60 / 60 #1 Right 60 / 60 Other: # Bowel Movements 0 Narrative: Substantially larger arm today and right upper extremity Junky breath sounds over right lung field, clear lung field on the left Chest tube in place over right chest, unlabored breathing Results - Labs CBC & Chem 7: 01/06/18 05:59 01/06/18 05:59 Laboratory Results - last 24 hr 01/06/18 01/06/18 05:59 05:59 WBC 21.5 H RBC 5.49 Hgb 16.9 Hct 50.4 MCV 91.9 MCH 30.8 MCHC 33.5 RDW 13.6 Plt Count 133 L MPV 8.3 Neut % (Auto) 88.4 H Lymph % (Auto) 5.1 L [place] % (Auto) 3.5 Eos % (Auto) 2.5 Baso % (Auto) 0.5 Neut # (Auto) 19.0 H Lymph # (Auto) 1.1 [place] # (Auto) 0.7 Eos # (Auto) 0.5 H Baso # (Auto) 0.1 WBC Differential . Differential Comment Auto diff final Sodium 139 Potassium 3.7 Chloride 105 Carbon Dioxide 27.7 Anion Gap 6 BUN 20 H Creatinine 1.39 H Estimated GFR 55 L Random Glucose 77 Calcium 8.4 L D Microbiology 01/04/18 23:42 Blood - Peripheral Aerobic Blood Culture - Preliminary No growth in 2 days 01/04/18 23:42 Blood - Peripheral Anaerobic Blood Culture - Preliminary No growth in 2 days 01/04/18 23:42 Blood - Peripheral Aerobic Blood Culture - Preliminary No growth in 2 days 01/04/18 23:42 Blood - Peripheral Anaerobic Blood Culture - Preliminary No growth in 2 days - Imaging Impressions Chest CT 01/05/18 00:00 CONCLUSION: 1. Small bore right-sided chest tube with pigtail catheter located along the lateral aspect of the right upper lobe. 2. Small to moderate residual pneumothorax. 3. Right lung infiltrate. Upper Extremity Ultrasound 01/05/18 00:00 CONCLUSION: 1. Findings consistent with cellulitis and small subcutaneous 15 mm abscess communicating with the draining cutaneous fistula. Assessment and Plan - Plan 47-year-old white male admitted with tension pneumothorax and cellulitis of right upper arm. 1. Pneumothorax Likely secondary to marijuana inhalation Pigtail in place, lung reexpanded with small apical pneumothorax remaining Dr. Johnson managing chest tube 2. Cellulitis/phlegmon in right arm Vancomycin/Zosyn Surgery notified, recommended medical evaluation for this this at the time being yesterday. We will monitor size of arm with measurements for now 3. Acute kidney injury -Improving, continue IV fluid
[2018-01-06] MEDS: Vancomycin Inj 1,250 MG in Sodium Chlor 0.9% Inj 250 ML IV.SIG SCH (13:27)
--- NOTE | 2018-01-06 17:02 | US ---
EXAM DATE: 01/06/2018 12:00 AM EDT AGE/SEX: 47 years / Male INDICATIONS: Abscess. Right arm swelling. CLINICAL DATA: This is the patient's subsequent encounter. Patient reports that signs and symptoms h ave been present for 3 days and indicates a pain score of 6/10. MEDICAL/SURGICAL HISTORY: . Right arm swelling and redness. Tension pneumothorax. . Right ches t tube placement. COMPARISON: [facility] – [place], US ARM SOFT TISSUE RIGHT, 01/05/2018. . FINDINGS: Grayscale evaluation of the distal right humerus show subcutaneous edema. No fluid collection consist ent with an abscess seen on the current study. Echogenic noncompressible material which is nonocclusi ve in nature seen involving the basilic vein associated with the IV. CONCLUSION: 1. Subcutaneous edema without abscess. 2. Small volume nonocclusive thrombus associated with the IV in the basilic vein. Electronically signed by: aSmy Jean Baptiste MD 01/06/2018 5:00 PM EDT
[2018-01-07] MEDS: HYDROmorphone PF Inj 2 MG/ML Vial IV.PUSH PRN ×6 (00:51→23:34)
[2018-01-07] MEDS: Piperacil/Tazo 3.375 GM Premix 50 ML IV.SIG SCH ×5 (00:52→23:34)
[2018-01-07] MEDS: Sod Chloride 0.9% Inj 1,000 ML IV.CONT SCH ×2 (06:30→16:07)
[2018-01-07] MEDS ORDERED: Pharmacy Ordered Lab Info OTHER ONE (07:45)
[2018-01-07] MEDS: Vancomycin Inj 1,250 MG in Sodium Chlor 0.9% Inj 250 ML IV.SIG SCH (08:21)
--- NOTE | 2018-01-07 14:43 | P.PN ---
Subjective Interval history: Nursing denies any deterioration since last night. Patient says that the circumference of his arm is about the same as today as it is yesterday around 34 cm. Has no new complaints. Physical Exam Vital signs: Vital Signs 01/06/18 16:00 01/06/18 16:01 01/06/18 20:00 Temperature 98.6 F 98.2 F Pulse Rate 81 77 Respiratory Rate 20 17 17 Blood Pressure 111/66 112/58 L Pulse Oximetry 94 L 96 01/07/18 00:00 01/07/18 08:00 01/07/18 11:10 Temperature 98.1 F 98.2 F Pulse Rate 78 76 Respiratory Rate 20 17 18 Blood Pressure 115/73 115/63 Pulse Oximetry 94 L 96 01/07/18 11:21 01/07/18 12:00 Temperature 98.5 F 98.1 F Pulse Rate 120 H 69 Respiratory Rate 19 Blood Pressure 163/97 H 118/73 Pulse Oximetry 95 98 Intake & Output 01/06/18 01/07/18 01/07/18 18:59 06:59 18:59 Intake Total 2372.5 / 2372.5 2099 / 2099 362.5 / 362.5 Output Total 1860 / 1860 40 / 40 1050 / 1050 Balance 512.5 / 512.5 2060 / 2060 -687.5 / -687.5 Weight 73.7 kg Intake: IV 1412.5 / 1412.5 2099 / 2099 362.5 / 362.5 NS Inj 1,000 ML @ 100 mls/hr IV 1100 / 1100 2000 / 2000 .CONT .Q10H [facility] Rx#:[id number] Zosyn 3.375 GM Premix 50 ML @ 50 / 50 100 / 100 100 / 100 100 mls/hr IV.SIG Q6H [facility]WIN Rx#: [id number] Vancomycin Inj 1,250 MG In NS 262.5 / 262.5 262.5 / 262.5 Inj 250 ML @ 250 mls/hr IV.SIG Q18H [facility] Rx#:[id number] Oral 960 / 960 Output: Urine 1800 / 1800 1050 / 1050 Chest Tube Drainage 60 / 60 40 / 40 #1 Right 60 / 60 40 / 40 Other: Date of Last Bowel Movement 01/04/18 01/04/18 Narrative: Dried crusted pus on right arm, diffuse erythema on right arm which is overall edematous from elbow to shoulder Chest tube in place, raspy breath sounds on the right lung field, clear in the left, unlabored breathing Results - Labs CBC & Chem 7: 01/06/18 05:59 01/06/18 05:59 Laboratory Results - last 24 hr 01/07/18 07:45 Vancomycin Trough 8.2 Microbiology 01/04/18 23:42 Blood - Peripheral Aerobic Blood Culture - Preliminary No growth in 3 days 01/04/18 23:42 Blood - Peripheral Anaerobic Blood Culture - Preliminary No growth in 3 days 01/04/18 23:42 Blood - Peripheral Aerobic Blood Culture - Preliminary No growth in 3 days 01/04/18 23:42 Blood - Peripheral Anaerobic Blood Culture - Preliminary No growth in 3 days - Imaging Impressions Upper Extremity Ultrasound 01/06/18 00:00 CONCLUSION: 1. Subcutaneous edema without abscess. 2. Small volume nonocclusive thrombus associated with the IV in the basilic vein. Assessment and Plan - Plan 47-year-old white male admitted with tension pneumothorax and cellulitis of right upper arm. 1. Pneumothorax Likely secondary to marijuana inhalation Pigtail in place, lung reexpanded with small apical pneumothorax remaining Dr. Johnson managing chest tube which is at suction right now. 2. Cellulitis/phlegmon in right arm Vancomycin/Zosyn Surgery notified, recommended medical evaluation for this this at the time being yesterday. We will monitor size of arm with measurements for now which apparently has been stable 3. Thrombus in R basilic vein -Lovenox dosing once cleared with surgery 3. Acute kidney injury -continue IV fluid
[2018-01-07] MEDS: Enoxaparin Inj 40 MG/0.4 ML Syringe SQ SCH (18:03)
[2018-01-08] MEDS: Vancomycin Inj 1,250 MG in Sodium Chlor 0.9% Inj 250 ML IV.SIG SCH ×2 (01:35→20:17)
[2018-01-08] MEDS: Sod Chloride 0.9% Inj 1,000 ML IV.CONT SCH ×2 (01:36→14:18)
[2018-01-08] MEDS: HYDROmorphone PF Inj 2 MG/ML Vial IV.PUSH PRN ×5 (03:44→22:22)
[2018-01-08] MEDS: Piperacil/Tazo 3.375 GM Premix 50 ML IV.SIG SCH ×3 (05:50→17:19)
--- NOTE | 2018-01-08 12:53 | P.PN ---
Subjective Interval history: Nursing denies any deterioration since last night. Chest tube put out about 50 cc overnight. Today patient's arm measures 33 cm which is down centimeters since yesterday. Patient himself feels okay. Physical Exam Vital signs: Vital Signs 01/07/18 15:46 01/07/18 16:00 01/07/18 19:59 Temperature 97.5 F L Pulse Rate 62 Respiratory Rate 18 18 17 Blood Pressure 135/61 Pulse Oximetry 98 01/07/18 20:14 01/08/18 00:00 01/08/18 00:01 Temperature 98.4 F 98.5 F Pulse Rate 65 72 Respiratory Rate 18 20 18 Blood Pressure 127/77 115/66 Pulse Oximetry 98 96 01/08/18 00:05 01/08/18 04:00 01/08/18 04:15 Temperature Pulse Rate Respiratory Rate 20 20 20 Blood Pressure Pulse Oximetry 01/08/18 04:29 01/08/18 08:00 01/08/18 12:00 Temperature 98.3 F 97.9 F 98.1 F Pulse Rate 77 65 61 Respiratory Rate 17 18 19 Blood Pressure 130/72 112/58 L 117/58 L Pulse Oximetry 95 97 98 Intake & Output 01/07/18 01/08/18 01/08/18 18:59 06:59 18:59 Intake Total 1912.5 / 1912.5 2409.5 / 2409.5 50 / 50 Output Total 2455 / 2455 1860 / 1860 Balance -542.5 / -542.5 549.5 / 549.5 50 / 50 Weight 73.7 kg Intake: IV 1412.5 / 1412.5 1629.5 / 1629.5 50 / 50 NS Inj 1,000 ML @ 100 mls/hr IV 1000 / 1000 1267 / 1267 .CONT .Q10H [facility] Rx#:[id number] Zosyn 3.375 GM Premix 50 ML @ 150 / 150 100 / 100 50 / 50 100 mls/hr IV.SIG Q6H [facility] Rx#: [id number] Vancomycin Inj 1,250 MG In NS 262.5 / 262.5 262.5 / 262.5 Inj 250 ML @ 250 mls/hr IV.SIG Q18H [facility] Rx#:[id number] Oral 500 / 500 780 / 780 Output: Urine 2325 / 2325 1800 / 1800 Chest Tube Drainage 130 / 130 60 / 60 #1 Right 130 / 130 60 / 60 Other: Date of Last Bowel Movement 01/04/18 01/07/18 # Bowel Movements 0 1 Narrative: Arm appears slightly smaller in size and less erythematous than yesterday chest tube in place Unlabored breathing, diminished breath sounds in the bases Results - Labs CBC & Chem 7: 01/06/18 05:59 01/06/18 05:59 Microbiology 01/04/18 23:42 Blood - Peripheral Aerobic Blood Culture - Preliminary No growth in 4 days 01/04/18 23:42 Blood - Peripheral Anaerobic Blood Culture - Preliminary No growth in 4 days 01/04/18 23:42 Blood - Peripheral Aerobic Blood Culture - Preliminary No growth in 4 days 01/04/18 23:42 Blood - Peripheral Anaerobic Blood Culture - Preliminary No growth in 4 days Assessment and Plan - Plan 47-year-old white male admitted with tension pneumothorax and cellulitis of right upper arm. 1. Pneumothorax Likely secondary to marijuana inhalation Pigtail in place, lung reexpanded with small apical pneumothorax remaining Dr. Johnson managing chest tube which is at suction right now. 2. Cellulitis/phlegmon in right arm Vancomycin/Zosyn Surgery notified, recommended medical evaluation for this this at the time being yesterday. slight improvement in edema from 34 to 33 cm 3. Thrombus in R basilic vein -Lovenox dosing once cleared with surgery 3. Acute kidney injury - improving, stopping IVFs, rechecking bmp
[2018-01-08 17:11] LABS: Calcium 8.9 mg/dL (8.5-10.1); Carbon Dioxide 30.7 meq/L (21.0-32.0); Potassium 3.9 meq/L (3.5-5.1)
[2018-01-08] MEDS: Enoxaparin Inj 40 MG/0.4 ML Syringe SQ SCH (17:19)
[2018-01-09] MEDS: Piperacil/Tazo 3.375 GM Premix 50 ML IV.SIG SCH ×4 (01:08→18:00)
[2018-01-09] MEDS: HYDROmorphone PF Inj 2 MG/ML Vial IV.PUSH PRN ×4 (02:27→20:14)
--- NOTE | 2018-01-09 12:29 | P.PNVS ---
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 and smoking degenerative changes of the lung Air leak is disappeared and lung has sealed over I took the chest tube off suction and clamped it and will leave it that way until tonight at which point I ordered a chest x-ray If there is no pneumothorax will remove the chest tube in the morning and let the patient go If the pneumothorax however recollects then patient will need thoracoscopy and bleb resection I have discussed this with patient at length and he agrees Addendum I was called by the nurse this afternoon stating the patient pulled out his own chest tube Chest x-ray reveals full expansion of the lung and therefore from my point patient can be discharged any time If this happens again patient should present to the emergency room and will deal with at which point patient would need thoracoscopy and bleb resection Objective Vital Signs / I&O: Vital Signs 01/08/18 16:00 01/08/18 20:00 01/08/18 23:11 Temperature 98.4 F 97.8 F Pulse Rate 62 60 Respiratory Rate 19 18 18 Blood Pressure 116/70 117/59 L Pulse Oximetry 95 97 01/09/18 00:00 01/09/18 03:06 01/09/18 04:50 Temperature 98.2 F 97.7 F Pulse Rate 62 58 L Respiratory Rate 20 18 20 Blood Pressure 120/68 102/58 L Pulse Oximetry 96 99 Intake & Output 01/08/18 01/09/18 01/09/18 18:59 06:59 18:59 Intake Total 1893 / 1893 1142.5 / 1142.5 Output Total 1000 / 1000 1800 / 1800 Balance 893 / 893 -657.5 / -657.5 Weight 72.5 kg Intake: IV 933 / 933 362.5 / 362.5 NS Inj 1,000 ML @ 100 mls/hr IV 833 / 833 .CONT .Q10H [facility] Rx#:[id number] Zosyn 3.375 GM Premix 50 ML @ 100 / 100 100 / 100 100 mls/hr IV.SIG Q6H [facility] Rx#: [id number] Vancomycin Inj 1,250 MG In NS 262.5 / 262.5 Inj 250 ML @ 250 mls/hr IV.SIG Q18H [facility] Rx#:[id number] Oral 960 / 960 780 / 780 Output: Urine 1000 / 1000 1800 / 1800 Other: Date of Last Bowel Movement 01/08/18 # Bowel Movements 1 Laboratory Results - last 24 hr 01/08/18 15:47 Sodium 139 Potassium 3.9 Chloride 104 Carbon Dioxide 30.7 Anion Gap 4 L BUN 9 Creatinine 1.43 H Estimated GFR 53 L Random Glucose 96 Calcium 8.9 Microbiology 01/04/18 23:42 Aerobic Blood Culture - Final Blood - Peripheral No growth in 5 days Anaerobic Blood Culture - Final No growth in 5 days 01/04/18 23:42 Aerobic Blood Culture - Final Blood - Peripheral No growth in 5 days Anaerobic Blood Culture - Final No growth in 5 days
[2018-01-09 12:34] LABS: Baso # (Auto) 0.1 th/mm3 (0.0-0.2); Baso % (Auto) 0.7 % (0.0-2.0); Eos # (Auto) 0.6 th/mm3 (0.0-0.4); Eos % (Auto) 7.6 % (0.0-4.0); Hematocrit 45.3 % (39.0-51.0); Hemoglobin 15.3 gm/dL (13.0-17.0); Lymph # (Auto) 1.1 th/mm3 (1.0-4.8); Lymph % (Auto) 14.5 % (9.0-44.0); Mean Corpuscular HGB Conc 33.7 % (32.0-36.0); Mean Corpuscular Hemoglobin 30.8 pg (27.0-34.0); Mean Corpuscular Volume 91.5 fL (80.0-100.0); Mean Platelet Volume 8.5 fL (7.0-11.0); Mono # (Auto) 0.7 th/mm3 (0.0-0.9); Mono % (Auto) 9.5 % (0.0-8.0); Neut # (Auto) 5.2 th/mm3 (1.8-7.7); Neut % (Auto) 67.7 % (16.0-70.0); Platelet Count 198 th/mm3 (150-450); Red Blood Count 4.95 mil/mm3 (4.50-5.90); Red Cell Distribution Width 13.7 % (11.6-17.2); White Blood Count 7.7 th/mm3 (4.0-11.0)
--- NOTE | 2018-01-09 12:45 | P.PN ---
Subjective Interval history: Nursing denies any deterioration since last night. Patient himself has no new complaints. Chest tube has been disconnected from the wall, leak has been sealed. Physical Exam Vital signs: Vital Signs 01/08/18 16:00 01/08/18 20:00 01/08/18 23:11 Temperature 98.4 F 97.8 F Pulse Rate 62 60 Respiratory Rate 19 18 18 Blood Pressure 116/70 117/59 L Pulse Oximetry 95 97 01/09/18 00:00 01/09/18 03:06 01/09/18 04:50 Temperature 98.2 F 97.7 F Pulse Rate 62 58 L Respiratory Rate 20 18 20 Blood Pressure 120/68 102/58 L Pulse Oximetry 96 99 Intake & Output 01/08/18 01/09/18 01/09/18 18:59 06:59 18:59 Intake Total 1893 / 1893 1142.5 / 1142.5 Output Total 1000 / 1000 1800 / 1800 Balance 893 / 893 -657.5 / -657.5 Weight 72.5 kg Intake: IV 933 / 933 362.5 / 362.5 NS Inj 1,000 ML @ 100 mls/hr IV 833 / 833 .CONT .Q10H [facility] Rx#:[id number] Zosyn 3.375 GM Premix 50 ML @ 100 / 100 100 / 100 100 mls/hr IV.SIG Q6H [facility] Rx#: [id number] Vancomycin Inj 1,250 MG In NS 262.5 / 262.5 Inj 250 ML @ 250 mls/hr IV.SIG Q18H [facility] Rx#:[id number] Oral 960 / 960 780 / 780 Output: Urine 1000 / 1000 1800 / 1800 Other: Date of Last Bowel Movement 01/08/18 # Bowel Movements 1 Narrative: Patient has clear lungs bilaterally, unlabored breathing Chest tube hooked up to apparatus only on the right side of his chest Right arm shows significant improvement in erythema since 3 days ago Results - Labs CBC & Chem 7: 01/09/18 12:21 01/08/18 15:47 Laboratory Results - last 24 hr 01/08/18 01/09/18 15:47 12:21 WBC 7.7 RBC 4.95 Hgb 15.3 Hct 45.3 MCV 91.5 MCH 30.8 MCHC 33.7 RDW 13.7 Plt Count 198 D MPV 8.5 Neut % (Auto) 67.7 Lymph % (Auto) 14.5 [place] % (Auto) 9.5 H Eos % (Auto) 7.6 H Baso % (Auto) 0.7 Neut # (Auto) 5.2 Lymph # (Auto) 1.1 [place] # (Auto) 0.7 Eos # (Auto) 0.6 H Baso # (Auto) 0.1 WBC Differential . Differential Comment Auto diff final Sodium 139 Potassium 3.9 Chloride 104 Carbon Dioxide 30.7 Anion Gap 4 L BUN 9 Creatinine 1.43 H Estimated GFR 53 L Random Glucose 96 Calcium 8.9 Microbiology 01/04/18 23:42 Blood - Peripheral Aerobic Blood Culture - Final No growth in 5 days 01/04/18 23:42 Blood - Peripheral Anaerobic Blood Culture - Final No growth in 5 days 01/04/18 23:42 Blood - Peripheral Aerobic Blood Culture - Final No growth in 5 days 01/04/18 23:42 Blood - Peripheral Anaerobic Blood Culture - Final No growth in 5 days Assessment and Plan - Plan 47-year-old white male admitted with tension pneumothorax and cellulitis of right upper arm. 1. Pneumothorax Likely secondary to marijuana inhalation Pigtail in place, lung reexpanded with small apical pneumothorax remaining Dr. Johnson managing chest tube which disconnected from suction at this time 2. Cellulitis/phlegmon in right arm Vancomycin/Zosyn Surgery notified, recommended medical evaluation for this this at the time being yesterday. Continues to improve 3. Thrombus in R basilic vein -Lovenox 3. Kidney disease -With adequate initial hydration and minimal improvement in renal function, appears to have a chronic component, patient counseled on the importance of adequate daily hydration and refraining from NSAIDs as much as possible
--- NOTE | 2018-01-09 13:48 | XR ---
EXAM DATE: 01/09/2018 6:00 PM EDT AGE/SEX: 47 years / Male INDICATIONS: Evaluate for pneumothorax; chest tube in place. CLINICAL DATA: This is the patient's subsequent encounter. Patient reports that signs and symptoms h ave been present for 4 - 6 days and indicates a pain score of 3/10. MEDICAL/SURGICAL HISTORY: None. None. [place] [facility] [place]05/2018. . FINDINGS: There is no chest tube demonstrated. However, there is a very partially imaged portion of a possible chest tube in the soft tissues of the inferior left hemithorax. Very subtle right apical pneumothorax . Cardiomediastinal contours are within normal limits. Remainder of exam is unchanged. CONCLUSION: 1. No definite chest tube demonstrated. Chest tube may have been retracted into the inferior soft ti ssues of the right hemithorax, as above. 2. Subtle right apical pneumothorax improved from prior exam. Electronically signed by: Satinder Garza MD 01/09/2018 1:47 PM EDT
[2018-01-09] MEDS: Vancomycin Inj 1,250 MG in Sodium Chlor 0.9% Inj 250 ML IV.SIG SCH (14:20)
[2018-01-09] MEDS: Enoxaparin Inj 40 MG/0.4 ML Syringe SQ SCH (16:36)
--- NOTE | 2018-01-09 17:00 | XR ---
EXAM DATE: 01/09/2018 4:24 PM EDT AGE/SEX: 47 years / Male INDICATIONS: Post chest tube removal, tube removed accidentally by patient CLINICAL DATA: This is the patient's subsequent encounter. Patient reports that signs and symptoms h ave been present for 4 - 6 days and indicates a pain score of 0/10. MEDICAL/SURGICAL HISTORY: . Pneumothorax None. COMPARISON: [facility] – [place], CHEST 1V SINGLE AP, 01/09/2018. . FINDINGS: A single AP view of the chest demonstrates the lungs to be symmetrically aerated without evidence of mass, infiltrate or effusion. No pneumothorax. The cardiomediastinal contours are unremarkable. Oss eous structures are intact. CONCLUSION: Negative examination. Electronically signed by: Samy Jean Baptiste MD 01/09/2018 4:58 PM EDT
[2018-01-10] MEDS: Piperacil/Tazo 3.375 GM Premix 50 ML IV.SIG SCH ×2 (01:12→06:18)
[2018-01-10] MEDS: HYDROmorphone PF Inj 2 MG/ML Vial IV.PUSH PRN (01:16)
[2018-01-10] MEDS ORDERED: Pharmacy Ordered Lab Info OTHER ONE (07:45)
[2018-01-10] MEDS: Vancomycin Inj 1,250 MG in Sodium Chlor 0.9% Inj 250 ML IV.SIG SCH (08:03)
--- NOTE | 2018-01-10 10:57 | P.PN ---
Subjective Interval history: Follow up for pneumothorax, right arm cellulitis-chest tube came out yesterday, follow-up x-ray stable, pneumothorax resolved. Endorses minimal right-sided chest wall pain, no shortness of breath, no fever, no nausea, no vomiting, no diarrhea. Right arm swelling much more improved, abscesses scabbing over. Physical Exam Vital signs: Vital Signs 01/09/18 12:00 01/09/18 16:00 01/09/18 20:00 Temperature 98.5 F 97.3 F L 97.3 F L Pulse Rate 74 58 L 61 Respiratory Rate 18 17 18 Blood Pressure 100/55 L 118/62 108/61 Pulse Oximetry 96 99 98 01/10/18 00:00 01/10/18 08:00 Temperature 98.7 F 97.3 F L Pulse Rate 62 56 L Respiratory Rate 18 18 Blood Pressure 118/62 91/55 L Pulse Oximetry 98 98 Intake & Output 01/09/18 01/10/18 01/10/18 18:59 06:59 18:59 Intake Total 1462.5 / 1462.5 580 / 580 Balance 1462.5 / 1462.5 580 / 580 Weight 72.5 kg Intake: IV 362.5 / 362.5 100 / 100 Zosyn 3.375 GM Premix 50 ML @ 100 / 100 100 / 100 100 mls/hr IV.SIG Q6H [facility] Rx#: [id number] Vancomycin Inj 1,250 MG In NS 262.5 / 262.5 Inj 250 ML @ 250 mls/hr IV.SIG Q18H [facility] Rx#:[id number] Oral 1100 / 1100 480 / 480 Other: # Voids 5 3 Date of Last Bowel Movement 01/08/18 Narrative: GENERAL: Well-nourished, well-developed patient in no apparent distress. SKIN: Right bicep with abscess, much more improved. Mild erythema, area scabbing over. No exudate. HEAD: Atraumatic. Normocephalic. EYES: Pupils equal and round. No scleral icterus. No injection or drainage. ENT: No nasal bleeding or discharge. Mucous membranes pink and moist. NECK: Trachea midline. No JVD. CARDIOVASCULAR: Regular rate and rhythm. RESPIRATORY: Diminished at bases, no accessory muscle use. Right lateral chest wall dressing intact. GASTROINTESTINAL: Abdomen soft, non-tender, nondistended. Hepatic and splenic margins not palpable. MUSCULOSKELETAL: Extremities without clubbing, cyanosis, or edema. No obvious deformities. Right upper extremity with abscess that is improving, intact sensation right hand fingertips. Right radial pulse 2+. NEUROLOGICAL: Awake and alert. No obvious cranial nerve deficits. Motor grossly within normal limits. Five out of 5 muscle strength in the arms and legs. Normal speech. PSYCHIATRIC: Appropriate mood and affect; insight and judgment normal. Results - Labs CBC & Chem 7: 01/09/18 12:21 01/10/18 07:22 Laboratory Results - last 24 hr 01/09/18 01/10/18 01/10/18 12:21 07:22 07:22 WBC 7.7 RBC 4.95 Hgb 15.3 Hct 45.3 MCV 91.5 MCH 30.8 MCHC 33.7 RDW 13.7 Plt Count 198 D MPV 8.5 Neut % (Auto) 67.7 Lymph % (Auto) 14.5 [place] % (Auto) 9.5 H Eos % (Auto) 7.6 H Baso % (Auto) 0.7 Neut # (Auto) 5.2 Lymph # (Auto) 1.1 [place] # (Auto) 0.7 Eos # (Auto) 0.6 H Baso # (Auto) 0.1 WBC Differential . Differential Comment Auto diff final Creatinine 1.32 H Estimated GFR 58 L Vancomycin Trough 13.9 H Microbiology 01/04/18 23:42 Blood - Peripheral Aerobic Blood Culture - Final No growth in 5 days 01/04/18 23:42 Blood - Peripheral Anaerobic Blood Culture - Final No growth in 5 days 01/04/18 23:42 Blood - Peripheral Aerobic Blood Culture - Final No growth in 5 days 01/04/18 23:42 Blood - Peripheral Anaerobic Blood Culture - Final No growth in 5 days - Imaging Impressions Chest X-Ray 01/09/18 16:24 CONCLUSION: Negative examination. Chest X-Ray 01/09/18 18:00 CONCLUSION: 1. No definite chest tube demonstrated. Chest tube may have been retracted into the inferior soft tissues of the right hemithorax, as above. 2. Subtle right apical pneumothorax improved from prior exam. Assessment and Plan - Assessment (1) Pneumothorax Code(s): J93.9 - Pneumothorax, unspecified Status: Acute (2) Cellulitis Code(s): L03.90 - Cellulitis, unspecified Status: Acute - Plan 47-year-old white male admitted with tension pneumothorax and cellulitis of right upper arm. Pneumothorax Likely secondary to marijuana inhalation -Managed with right pigtail. This was accidentally pulled out yesterday. Had chest x-ray after, resolution no pneumothorax. -Dr. Johnson following, input appreciated. Cleared for discharge. Tobacco abuse Counseling done Cellulitis/phlegmon in right arm secondary to insect bite Right arm markedly improved, area scabbing over. Afebrile, WBC normal now -on Vancomycin/Zosyn -Improving, cultures negative. Non-occlusive Thrombus in R basilic vein -on Lovenox -No need for anticoagulation upon discharge Renal insufficiency, possibly underlying chronic kidney disease Given IV fluids Creatinine improved Instructed to refrain from NSAIDs as much as possible, increase p.o. fluids. Case management consultation to assist with blue car for antibiotics Patient instructed to follow-up at [facility] in 1-2 weeks, indicates that he is trying to get [facility]. Continue with heart healthy diet Increase p.o. fluids Avoid NSAIDs Instructed on handwashing, avoid picking at right arm wound.
--- NOTE | 2018-01-10 18:25 | P.DS ---
Date of admission: 01/05/18 01:52 Primary care physician: No Primary Care Physician Attending physician on discharge: Souleymane Salamanca Anticipated date of discharge: 01/10/18 Brief History from admission: 47-year-old male with no significant past medical history presents to the emergency department for evaluation of a red, swollen, painful right arm. He reports that the wound initially started as an ant bite that he picked at and it became infected. He denies any drainage of the area. He also reports a one- week history of shortness of breath. Chest x-ray showed incidental tension pneumothorax. Positive fever/chills. No chest pain. No abdominal pain. No nausea/vomiting/diarrhea. DS: Diagnosis - Discharge Diagnosis (1) Pneumothorax Status: Acute (2) Cellulitis Status: Acute DS: Medications - Discharge Medications Prescriptions: sulfamethoxazole-trimethoprim [Bactrim DS] 1 tab PO Q12H 7 Days #14 tab DS: Summary Hospital Course: 47-year-old male with no significant past medical history presents to the emergency department for evaluation of a red, swollen, painful right arm. He reported that the wound initially started as an ant bite that he picked at and it became infected. He denied any drainage of the area. He also reported a one -week history of shortness of breath. Chest x-ray showed incidental tension pneumothorax. Positive fever/chills. No chest pain. No abdominal pain. No nausea/vomiting/diarrhea. Likely cause of pneumothorax was secondary to presence of blebs, history of COPD, also positive for tobacco abuse as well as marijuana use. Patient had placement of a right pigtail chest tube. Dr. Johnson was consulted to assist with chest tube management. On 01/09/2018, chest tube accidentally came out, x-ray was done which showed resolution of pneumothorax. Dr. Izquierdo cleared for discharge. Patient was put on Vanco and Zosyn for treatment of cellulitis of the right arm. WBC started trending down, no fever. Right arm swelling improved tremendously. Patient was able to move arm, had intact sensation to fingertips and radial pulses 2+. He had a nonocclusive thrombus in the right basilic vein. He was put on Lovenox for DVT prophylaxis. He was noted with some renal insufficiency, patient possibly had underlying CKD. He was given IV fluids, creatinine improved. He was instructed to refrain from NSAIDs and to increase p.o. fluids. Patient was homeless, case management was consulted to assist with discharge planning. Patient was instructed to follow-up at [facility]. Patient was discharged in stable condition. - Time Spent with Patient Total time spent providing and/or coordinating discharge services: Less than 30 minutes - Quality: VTE Deep Vein Thrombosis/Pulmonary Embolism Present on Admission: No Exam Vital signs: Vital Signs 01/09/18 20:00 01/10/18 00:00 01/10/18 08:00 Temperature 97.3 F L 98.7 F 97.3 F L Pulse Rate 61 62 56 L Respiratory Rate 18 Blood Pressure 108/61 118/62 91/55 L Pulse Oximetry 98 98 98 Intake & Output 01/09/18 01/10/18 01/10/18 18:59 06:59 18:59 Intake Total 1462.5 / 1462.5 580 / 580 262.5 / 262.5 Balance 1462.5 / 1462.5 580 / 580 262.5 / 262.5 Weight 72.5 kg Intake: IV 362.5 / 362.5 100 / 100 262.5 / 262.5 Zosyn 3.375 GM Premix 50 ML @ 100 / 100 100 / 100 100 mls/hr IV.SIG Q6H IRWIN Rx#: [id number] Vancomycin Inj 1,250 MG In NS 262.5 / 262.5 262.5 / 262.5 Inj 250 ML @ 250 mls/hr IV.SIG Q18H IRWIN Rx#:[id number] Oral 1100 / 1100 480 / 480 Other: # Voids 5 3 Date of Last Bowel Movement 01/08/18 Results Procedures completed during hospitalization: Chest tube placement 01/05/2018 Labs on day of discharge: Labs from last 24 hours 01/10/18 01/10/18 07:22 07:22 Creatinine 1.32 H Estimated GFR 58 L Vancomycin Trough 13.9 H - Impressions ITS Impressions Humerus X-Ray 01/04/18 22:23 CONCLUSION: Negative right humerus series Chest CT 01/05/18 00:00 CONCLUSION: 1. Small bore right-sided chest tube with pigtail catheter located along the lateral aspect of the right upper lobe. 2. Small to moderate residual pneumothorax. 3. Right lung infiltrate. Venous Doppler Study 01/05/18 00:00 CONCLUSION: 1. The study is negative for upper extremity deep venous thrombosis. Upper Extremity Ultrasound 01/06/18 00:00 CONCLUSION: 1. Subcutaneous edema without abscess. 2. Small volume nonocclusive thrombus associated with the IV in the basilic vein. Chest X-Ray 01/09/18 18:00 CONCLUSION: 1. No definite chest tube demonstrated. Chest tube may have been retracted into the inferior soft tissues of the right hemithorax, as above. 2. Subtle right apical pneumothorax improved from prior exam. Discharge Plan - Discharge Disposition Patient Disposition: 01 Discharge Home - Discharge Condition Condition: Good - Discharge Order Discharge Orders: Discharge Order (Routine); Ordered 01/10/18 Ordered By: Litzy Ceballos - Discharge Details Anticipated Discharge Date: 01/10/18 - Physicians Team Primary Care Provider: Primary Care Genoveva,Stephenie Attending Provider: Souleymane Salamanca Other Providers: Terry Johnson MD
== END 2018-01-10 11:43 | disposition home or self-care (01) ==
LOC: NEPE 20:47 → NEDA 01-05 01:52 → N07 01-05 04:00
PROVIDERS: ADMIT Hospitalist; ATTEND Hospitalist